=== PATIENT | male | born 1940 | race Caucasian/White ===

== ENCOUNTER 2018-05-20 05:37 | Inpatient (IN) | payer OTHER ==
[2018-05-01 12:07] LABS: HEMATOCRIT 42.1 % (42.0-52.0); HEMOGLOBIN 14.9 gm/dL (14.0-18.0); MCHC 35.4 g/dL (28.0-37.0); MCV 90.4 fL (80.0-100.0); RBC 4.66 mil/uL (4.50-6.00); RDW 13.6 % (10.5-14.5); WBC 8.1 thou/uL (4.0-11.0)
[2018-05-01 12:10] LABS: URINE BILIRUBIN NEGATIVE (Negative); URINE BLOOD NEGATIVE (Negative); URINE CLARITY CLEAR; URINE COLOR YELLOW; URINE GLUCOSE-RANDOM* NEGATIVE (Negative); URINE KETONES NEGATIVE (Negative); URINE LEUKOCYTES-REFLEX NEGATIVE (Negative); URINE NITRITE-REFLEX NEGATIVE (Negative); URINE PROTEIN (DIPSTICK) NEGATIVE (Negative); URINE SPECIFIC GRAVITY 1.025 (1.005-1.035); URINE UROBILINOGEN 0.2 E.U./dl (0.2-1.0)
[2018-05-01 12:13] LABS: ALBUMIN 3.6 g/dL (3.4-5.0); CALCIUM 9.5 mg/dL (8.5-10.1); CREATININE 1.3 mg/dL (0.7-1.3); POTASSIUM 4.1 mmol/L (3.5-5.1)
[2018-05-01 12:16] LABS: PROTIME 10.2 Seconds (9.3-11.4)
[~2018-05-20] VITALS: Ht 177.8 cm; Wt 79.4 kg
--- NOTE | ~2018-05-20 | O ---
[facility] [place] [address] OPERATIVE REPORT Name: ALDO OSBORN Room #: 419-P [facility] IN M.R.#: [id number] Admission: 05/20/18 Attend Phys: Shun Dasilva MD Discharge: Date of : 44 Report #: [id number] THIS REPORT FOR: //name// CC: Shun Corea DATE OF SERVICE: 05/20/2018 PREOPERATIVE DIAGNOSIS: End-stage degenerative osteoarthritis, right hip. POSTOPERATIVE DIAGNOSIS: End-stage degenerative osteoarthritis, right hip. PROCEDURE: Right total hip arthroplasty. SURGEON: Shun Dasilva M.D. INDICATIONS: This still very active and fit 77-year-old gentleman enjoys exercise and sports. He has progressive bilateral hip pain. Currently, the symptoms are more severe on the right side. Clinical exam and x-rays confirm rather significant degenerative osteoarthritis. He has elected to go ahead with right total hip arthroplasty. DESCRIPTION OF PROCEDURE: The patient was taken to the operating room, where he was placed under general anesthesia. Prophylactic intravenous antibiotics were administered. He was turned to the left lateral decubitus position. The right hip, thigh and leg were meticulously prepped and draped. A slightly curving posterolateral skin incision was made centered over the greater trochanter. This was carried through subcutaneous tissues and fascia. The gluteus was split longitudinally exposing the posterior aspect of the hip. The piriformis and short external rotators were taken down and tagged with several #1 Tevdek sutures. The hip was dislocated. Marked degenerative change on the femoral head and acetabulum was noted. A femoral neck osteotomy was performed and the canal was opened with reamers and hand broaches. The Armstrong and Nephew hip system was utilized. A size 16 Synergy femoral stem seemed to fit nicely. The trial component was removed and attention directed to the acetabulum. Good exposure was established and the acetabulum was sequentially reamed, gradually advancing to a 54-mm reamer. A Armstrong and Nephew 54-mm 3-hole hemispherical cup was then placed. This was positioned in alignment with his true acetabulum, placing this in about 45 degrees off of vertical and about 20 degrees of anteversion. It seated nicely and appeared to be secure. In addition, 3 screws were placed through the apex of the shell, engaging good periacetabular bone. A 36-mm acetabular liner was then inserted. This was placed with the 20-degree elevated rim at about the 10 o'clock posterior position. It seated nicely and appeared to be secure. The Armstrong and Nephew size 16 Synergy porous femoral component was then impacted in the canal, placing this in about 15-20 degrees of anteversion. It seated nicely and appeared to be secure. Trial reduction was [address] [address] OPERATIVE REPORT Name: ALDO OSBORN Room #: 419-P [facility] IN M.R.#: [id number] Admission: 05/20/18 Attend Phys: Shun Dasilva MD Discharge: Date of : 42 Report #: [id number] performed and the hip seemed to be nicely reduced and stable when using a +0 neck length and a 36-mm head size. The cobalt chrome 36-mm head with a +0 neck length was then impacted on to the Arreola taper neck. The hip was reduced. Alignment, range of motion, stability and leg length were assessed and felt to be satisfactory. The wound was copiously irrigated. Good hemostasis was established. The short external rotators and capsule were then repaired back to bone using the #1 Tevdek sutures passed through small drill holes in the greater trochanter. A single Hemovac was left in the wound exiting through a separate stab incision. The fascia was then closed with multiple #1 Vicryl sutures. The subcutaneous tissues were closed with 0 Monocryl. The skin was closed with skin polina. A sterile dressing was applied. The patient was awakened and returned to the recovery room in good condition. <ELECTRONICALLY SIGNED> By: Shun Dasilva MD 05/21/18 0739 [id number] Shun Dasilva MD /trent
--- NOTE | ~2018-05-20 | D ---
[facility] [place] [address] DISCHARGE SUMMARY Name: ALDO OSBORN Room #: 227-P [facility] IN ..#: [id number] Admission: 05/20/18 Attend Phys: Shun Dasilva MD Discharge: Date of : 42 Report #: [id number] THIS REPORT FOR: //name// CC: Shun Corea DATE OF SERVICE: 05/22/2018 FINAL DIAGNOSIS: End-stage degenerative osteoarthritis, right hip. OPERATIONS AND PROCEDURES: Right total hip arthroplasty. HISTORY OF PRESENT ILLNESS: This very active and healthy 77-year-old gentleman complains of bilateral hip pain, now greatest on the right side. Clinical exam and x-rays confirm rather severe end-stage degenerative osteoarthritis involving both hips. He has elected to go ahead with right total hip arthroplasty. HOSPITAL COURSE: The patient was admitted and taken to the operating room on 05/20/2018, he underwent right total hip arthroplasty, which he tolerated well. Postoperatively, his course was largely unremarkable. He advanced from IV analgesics to oral analgesics and resumed a regular diet. He participated with physical therapy and made good progress, returning to safe and independent ambulation using a walker for balance. He resumed his preoperative medications. He seems to be safe, independent and ready for discharge today on 05/22/2018. DISCHARGE MEDICATIONS: Include lisinopril 1 tablet daily, Lipitor 80 mg daily, Coreg 6.25 mg b.i.d., Nexium 40 mg daily, tramadol 50 mg q.6 hours p.r.n. for mild pain, hydrocodone 10/325 one q.6 hours p.r.n. for moderate or severe pain, Cymbalta 60 mg daily, Xarelto 10 mg daily. He will continue a regular diet at home and independent activities, and ambulation using a walker for safety. I have asked him to call me should there be any problems or questions. We will otherwise plan to see him back in my office for followup and suture removal in either one or two weeks. By: Shun Dasilva MD /nt
[~2018-05-20 05:37] MED LIST: ASPIR 8181 MG PO; CELEBREX 200 M200 M1 PO; COREG6.25 MG PO; CYMBALTA60 MG PO; FISH OIL 1,001000 M2 PO; LIPITOR80 MG PO; NEXIUM40 MG PO; TRAMADOL 50 MG50 MG PO; TURMERIC500 M2 PO; ZESTORETIC 20-1 EAC3 PO
[2018-05-20 07:00] VITALS: BP 119/79
[2018-05-20 12:00] VITALS: BP 89/55
[2018-05-20 13:00] VITALS: BP 97/70
[2018-05-20 15:30] VITALS: BP 103/66
[2018-05-20 20:00] VITALS: BP 107/54
[2018-05-21 00:32] VITALS: BP 122/61
[2018-05-21 01:00] VITALS: BP 113/70
[2018-05-21 06:31] LABS: HEMATOCRIT 34.5 % (42.0-52.0); HEMOGLOBIN 12.1 gm/dL (14.0-18.0); MCH 31.7 pg (26.0-34.0); MCHC 35.1 g/dL (28.0-37.0); MCV 90.4 fL (80.0-100.0); RBC 3.82 mil/uL (4.50-6.00); RDW 13.2 % (10.5-14.5); WBC 17.5 thou/uL (4.0-11.0)
[2018-05-21 07:21] VITALS: BP 104/72
[2018-05-21 16:00] VITALS: BP 96/53
[2018-05-21 17:20] VITALS: BP 103/66
[2018-05-22 10:19] VITALS: BP 95/53
[2018-05-22 10:59] VITALS: BP 95/53
== END 2018-05-22 12:44 | disposition home or self-care (01) | DRG 470 ==
LOC: PRE 05:37 → 4E 05:51 → TBA 05:51 → 4E 11:13 → PRE 11:25 → SICU 05-21 16:47 → ENTRNSPT 05-22 12:01 → EDTRNSPTSTS 05-22 12:02 → SICU 05-22 12:44
PROVIDERS: Orthopaedic Surgery
PROC: 0SR90JZ Replacement of Right Hip Joint with Synthetic Substitute, Open Approach (ICD-10-PCS; principal; 2018-05-20)
DX: M16.0 Bilateral primary osteoarthritis of hip (principal); I10 Essential (primary) hypertension; E78.5 Hyperlipidemia, unspecified; I95.2 Hypotension due to drugs; T40.2X5A Adverse effect of other opioids, initial encounter; Y92.89 Other specified places as the place of occurrence of the external cause; Z87.891 Personal history of nicotine dependence; Z79.899 Other long term (current) drug therapy; Z82.49 Family history of ischemic heart disease and other diseases of the circulatory system; Z80.0 Family history of malignant neoplasm of digestive organs; Z80.1 Family history of malignant neoplasm of trachea, bronchus and lung; Z80.52 Family history of malignant neoplasm of bladder
CPT/HCPCS: 10783; 15002; 50010; 50101; 50382; 50414; 51412; 51771; 53000; 53367; 56521; 56525; 56527; 57103; 62110; 62900; 70005

== ENCOUNTER 2019-03-17 07:24 | Inpatient (IN) | payer OTHER ==
[2019-03-05 12:34] LABS: HEMATOCRIT 39.6 % (42.0-52.0); HEMOGLOBIN 13.9 gm/dL (14.0-18.0); MCH 31.9 pg (26.0-34.0); MCV 91.2 fL (80.0-100.0); RBC 4.35 mil/uL (4.50-6.00); RDW 13.8 % (10.5-14.5); WBC 7.3 thou/uL (4.0-11.0)
[2019-03-05 12:39] LABS: URINE BILIRUBIN NEGATIVE (Negative); URINE BLOOD NEGATIVE (Negative); URINE CLARITY CLEAR; URINE COLOR YELLOW; URINE GLUCOSE-RANDOM* NEGATIVE (Negative); URINE KETONES NEGATIVE (Negative); URINE LEUKOCYTES-REFLEX NEGATIVE (Negative); URINE NITRITE-REFLEX NEGATIVE (Negative); URINE PROTEIN (DIPSTICK) NEGATIVE (Negative); URINE UROBILINOGEN 0.2 E.U./dl (0.2-1.0)
[2019-03-05 12:46] LABS: INR 1.4; PROTIME 14.7 Seconds (9.3-11.4)
[2019-03-05 12:57] LABS: CALCIUM 9.5 mg/dL (8.5-10.1); CREATININE 1.4 mg/dL (0.7-1.3); POTASSIUM 3.9 mmol/L (3.5-5.1)
[2019-03-17] VITALS (7 sets, daily range): BP systolic 91–114; BP diastolic 55–74
[~2019-03-17] VITALS: Ht 177.8 cm; Wt 77.1 kg
[~2019-03-17 07:24] MED LIST changes: +PERCOCET 10-321 EACH PO; +XARELTO20 MG PO
--- NOTE | 2019-03-17 19:15 | NUR ---
PT ARRIVED TO FLOOR AT 1300 FROM RR IN STABLE CONDITION.POST OP ASSESSMENT COMPLETED.VSS.JELLO AND COLD SANDWICH GIVEN PER PT REQUEST AND WELL TOLERATED. PAIN MED GIVEN LATER THIS AFTERNOON.300ML BLOODY OUTPUT DRAINED FORM HEMOVAC. PT AT ASSISTING WITH CARE.WILL CONTINUE TO MONITOR.
--- NOTE | 2019-03-18 03:10 | NUR ---
ASSUMED CARE OF PT @1900 PT ASSESSED AT START OF SHIFT A&OX4 AT THIS SHIFT. HEMOVAC DRAIN INTACT AND DRAINED OUT 100ML. MARY DRESSING IN LFT HIP AND ICE PACK IN PLACE. PT HR OF 116. AND LOW BP OF 97/72 CALLED ARTIST RELATIONSHIP MANAGER FINISHER CARD TENDER FOR ORDER OF FLUIDS. IV INTACT IN RT HAND AND ABX AND FLUIDS INFUSING. SCD'S AND RUY HOSE INTACT. PAIN MEDS GIVEN FOR MGMNT SEE EMAR WILL CONT WITH POC TILL EOS.
[2019-03-18 05:29] VITALS: BP 114/66
[2019-03-18 05:59] LABS: HEMATOCRIT 31.6 % (42.0-52.0); HEMOGLOBIN 11.1 gm/dL (14.0-18.0); MCH 32.3 pg (26.0-34.0); MCV 92.2 fL (80.0-100.0); RBC 3.43 mil/uL (4.50-6.00); RDW 13.3 % (10.5-14.5); WBC 17.4 thou/uL (4.0-11.0)
[2019-03-18 07:47] VITALS: BP 115/74
--- NOTE | 2019-03-18 08:30 | O ---
[facility] [place] [address] OPERATIVE REPORT Name: ALDO OSBORN Room #: 420-P [facility] IN M.R.#: [id number] Admission: 03/17/19 ������������������ Attend Phys: Shun Dasilva MD Discharge: ������������������ Date of : 44 Report #: [id number] THIS REPORT FOR: //name// CC: Shun Corea DATE OF SERVICE: 03/17/2019 PREOPERATIVE DIAGNOSIS: End-stage degenerative arthritis, left hip. POSTOPERATIVE DIAGNOSIS: End-stage degenerative arthritis, left hip. PROCEDURE: Left total hip arthroplasty. SURGEON: Shun Dasilva MD INDICATIONS: This still active 78-year-old gentleman has progressive degenerative arthritis of both hips. He underwent right total hip arthroplasty about 1 year ago with good result. He returns now for left total hip arthroplasty. DESCRIPTION OF PROCEDURE: The patient was taken to the operating room where he was placed under general anesthesia. Prophylactic intravenous antibiotics were administered. He was turned to the right lateral decubitus position. The left hip, thigh and leg were meticulously prepped and draped. A slightly curving posterolateral skin incision was made and carried through the posterior fascia to expose the posterior aspect of the hip joint. The short external rotators and capsule were taken down and tagged with several #1 Tevdek sutures. The hip was dislocated posteriorly and marked degenerative change on the femoral head and acetabulum was noted. A femoral neck osteotomy was performed and the Armstrong and Nephew hip system was utilized. The canal reamers and broaches were utilized and a size 16 press-fit stem seemed to fit best. The calcar was trimmed down to an appropriate level. Attention was directed to the acetabulum. Good exposure was established and the acetabulum was sequentially reamed using hemispherical reamers, gradually advancing to a size 56 mm reamer. A 56 mm Armstrong and Nephew 3-hole fenestrated shell was selected. This was impacted into position in alignment with his true acetabulum, which positioned this in about 20 degrees of anteversion and about 45 degrees off of vertical. It seemed to seat nicely and appeared to be secure. In addition, 3 cancellous screws were placed through the apex holes in the shell engaging good periacetabular bone, resulting in increased stability. A 40 mm polyethylene insert was then applied, positioning the 20-degree elevated rim at about the 10 o'clock posterior position. This seated nicely and appeared to be secure. The permanent Armstrong and Nephew Synergy size 16 femoral component was then impacted into position. It was placed in about 20 degrees of anteversion and seated nicely and appeared to be secure. A trial reduction was performed and the hip seemed best suited [address] [address] OPERATIVE REPORT Name: ALDO OSBORN Room #: 420-P [facility] IN .R.#: [id number] Admission: 03/17/19 ������������������ Attend Phys: Shun Dasilva MD Discharge: ������������������ Date of : 44 Report #: [id number] for a +0 neck length and the 40 mm head size. This resulted in appropriate hip stability with leg length and range of motion. The trial head was removed and the permanent Armstrong and Nephew size 40 cobalt chrome head was selected using a +0 mm neck sleeve. This was impacted on the Arreola taper. The hip was once again reduced. Alignment, range of motion, stability and leg lengths were once again assessed and felt to be satisfactory. The entire wound was copiously irrigated. Good hemostasis was established. The short external rotators were then repaired using the #1 Tevdek sutures passed through small drill holes in the posterior rim of the greater trochanter. This resulted in excellent additional stability. A single Hemovac was left in the wound exiting through a separate stab incision. The fascia was closed with multiple #1 Vicryl sutures. The subcutaneous tissues were closed with 0 Monocryl. Skin was closed with skin polina. Sterile dressing was applied. The patient was awakened and returned to recovery room in good condition. ��������������������������������������������� <ELECTRONICALLY SIGNED> ���������������������������������������� By: Shun Dasilva MD ��������������������������������������������� 03/18/19 0830 1057 [id number] Shun Dasilva MD /nt
[2019-03-18 13:18] VITALS: BP 115/74
--- NOTE | 2019-03-18 13:19 | NUR ---
Chart reviewed and case discussed with the care team. Teleprinter Installer visited with the pt and his spouse at bedside. He is a&ox4 and indep prior to his elective joint surgery. He has a rwalker at home from his other hip surgery last year. He lives with his spouse and is planning to go to outpt therapy at [facility] in the next couple of weeks. He denies need for hh referral and plans to do a home exercise program until he starts outpt therapy. No cm interventions indicated at this time. Cm role introduced. Will remain available should needs arise.
--- NOTE | 2019-03-18 13:24 | NUR ---
Assumed pt care at 7am.Assessment completed.vss.Pt stated that his bp was low last night and was on ivf.Dr Dasilva here early this am and wanted hospitalist notify about pt resuming home med.Dr Gruber notified and he rounded on pt and order noted.Medicated pt with pain med prior to walking in hallways with therapist,good endurance noted.Piv accidentally pulled by pt,Dr Gruber notified and he said it shouldn't be replace.Pt has adequate u/o per urinal.No further c/o at present,will continue to monitor.
[2019-03-18 15:26] VITALS: BP 104/62
[2019-03-18 19:07] VITALS: BP 92/62
--- NOTE | 2019-03-19 03:16 | NUR ---
PT C/O PAIN ON HIS LLE,MANAGED WITH PAIN MED.UP WITH SBA AND WALKER,GOOD ENDURANCE NOTED.URINAL AT BEDSUDE.PT'S BP IN THE 90'S AIRFRAME AND POWERPLANT TECHNICIAN ON DUTY NOTIFIED,ORDER NOTED TO MONITOR PT.DR RICARDO HERE TO VISIT PT AT START OF SHIFT,ORDER NOTED TO PULL THE HEMOVAC,ORDER CARRIED OUT.DRSG C/D/I WITH MARY DRSG.PT RESTING ON HIS BED AT THIS TIME.CALL LIGHT WITHIN REACH.
[2019-03-19 04:09] VITALS: BP 96/61
[2019-03-19 05:41] LABS: HEMATOCRIT 28.8 % (42.0-52.0); HEMOGLOBIN 9.9 gm/dL (14.0-18.0); MCH 32.3 pg (26.0-34.0); MCHC 34.5 g/dL (28.0-37.0); MCV 93.6 fL (80.0-100.0); RBC 3.08 mil/uL (4.50-6.00)
[2019-03-19 07:26] VITALS: BP 111/70
[2019-03-19 11:23] VITALS: BP 115/74
--- NOTE | 2019-03-19 11:58 | NUR ---
Assumed care of pt at 0700. Pt a&ox4. Dressing on left hip clean and intact. Pt worked with PT/OT. Prn pain meds administered. Pt discharging to home.
--- NOTE | 2019-03-21 10:26 | D ---
[facility] [place] [address] DISCHARGE SUMMARY Name: ALDO OSBORN Room #: 420-P [facility] IN ..#: [id number] Admission: 03/17/19 ������������������ Attend Phys: Shun Dasilva MD Discharge: 03/19/19 ������������������ Date of : 44 Report #: [id number] THIS REPORT FOR: //name// CC: Shun Corea DATE OF SERVICE: 03/19/2019 FINAL DIAGNOSIS: End-stage degenerative arthritis, left hip. OPERATION PROCEDURE: Left total hip arthroplasty. HISTORY OF PRESENT ILLNESS: This still very active 78-year-old gentleman presents with progressive left hip pain. He has severe degenerative arthritis involving both hips. He underwent right total hip replacement 1 year ago with good result. He returns now for a left total hip replacement. He is otherwise generally healthy aside for mild hypertension and a history of atrial fibrillation. He is on chronic anticoagulation. HOSPITAL COURSE: The patient was admitted and taken to the operating room on 03/17/2019. He underwent left total hip replacement, which he tolerated nicely. Postoperatively, his course has been largely unremarkable. He has advanced to regular diet and has made good progress with therapy. He is now ambulating with a walker for balance, but with full weightbearing and good range of motion and improving strength. He has mild discomfort which is well managed with oral medications. He is back on his routine anticoagulation and other routine medications. He is anxious for hospital discharge. Both he and his feel he is safe and functionally independent at this time. We will plan for home with some visiting home therapy and assistance from family. He may continue using his walker for balance and ambulate with full weightbearing. DISCHARGE MEDICATIONS: Include lisinopril 1 tablet daily, atorvastatin 80 mg daily, Carvedilol 6.25 mg 2 tablets twice daily, Nexium 40 mg daily, tramadol 50 mg q. 4 hours p.r.n. for mild pain, hydrocodone 10/325 mg one q. 6 hours p.r.n. for more severe pain, Xarelto 20 mg daily. He will call me should there be any problems or questions. We will otherwise plan to see him back in my office in 1 week for followup and in 2 weeks for suture removal. ��������������������������������������������� <ELECTRONICALLY SIGNED> ���������������������������������������� By: Shun Dasilva MD ��������������������������������������������� 03/21/19 1026 0817 1626 Shun Dasilva MD /nt
== END 2019-03-19 12:02 | disposition home or self-care (01) | DRG 470 ==
LOC: TBA 07:24 → 4E 07:24 → PRE 11:53 → ENTRNSPT 03-19 11:50 → EDTRNSPTSTS 03-19 11:52 → 4E 03-19 12:02
PROVIDERS: ADMIT Orthopaedic Surgery
PROC: 0SRB02A Replacement of Left Hip Joint with Metal on Polyethylene Synthetic Substitute, Uncemented, Open Approach (ICD-10-PCS; principal; 2019-03-17)
DX: M16.12 Unilateral primary osteoarthritis, left hip (principal); R00.0 Tachycardia, unspecified; I10 Essential (primary) hypertension; I48.2 Chronic atrial fibrillation; K21.9 Gastro-esophageal reflux disease without esophagitis; G89.29 Other chronic pain; M54.9 Dorsalgia, unspecified; E78.5 Hyperlipidemia, unspecified; Z96.641 Presence of right artificial hip joint; R37 Sexual dysfunction, unspecified; M25.559 Pain in unspecified hip; M54.5 Low back pain; Z85.028 Personal history of other malignant neoplasm of stomach; Z85.118 Personal history of other malignant neoplasm of bronchus and lung; Z85.51 Personal history of malignant neoplasm of bladder; Z98.49 Cataract extraction status, unspecified eye
CPT/HCPCS: 10783; 50010; 50101; 50382; 50414; 51412; 53000; 53367; 56521; 56525; 56527; 57095; 62110; 62900; 70005

== ENCOUNTER → 2021-07-26 | Outpatient (CLI) | payer OTHER | LOC: SJCVCIMAG 09:04 | PROVIDERS: ATTEND Internal Medicine | DX: I48.21 Permanent atrial fibrillation (principal); E78.5 Hyperlipidemia, unspecified; R94.31 Abnormal electrocardiogram [ECG] [EKG]; I10 Essential (primary) hypertension; K21.9 Gastro-esophageal reflux disease without esophagitis; E05.90 Thyrotoxicosis, unspecified without thyrotoxic crisis or storm; R73.9 Hyperglycemia, unspecified; R42 Dizziness and giddiness; Z79.899 Other long term (current) drug therapy; Z87.891 Personal history of nicotine dependence; Z72.89 Other problems related to lifestyle ==